=== PATIENT | male | born 1995 ===

== ENCOUNTER 2017-08-04 19:34 | Emergency (ER) | payer BC ==
[2017-08-04] MEDS ORDERED: Amoxicillin PO (*) 500 MG CAP PO ONE (21:10)
[2017-08-04] MEDS ORDERED: Dexamethasone TAB* 4 MG PO ONE (21:14)
--- NOTE | 2017-08-04 21:14 | ED ---
Throat Pain/Nasal Congestion - HPI Summary HPI Summary: 22-year-old male presents with sore throat for the past week. He admits to occasional cough. He is able to swallow but states it is painful. He is able tolerate food and drink. He denies any fatigue. He admits to subjective fevers. He denies any muscle aches. He denies any bowel pain. He denies any nausea vomiting. He also has been treated for conjunctivitis for the past 4 days on Polytrim. He states he woke up with crusting of his eye 5 days ago. He states been gradually getting better but thought it be more improvement this. He does wear contacts but has not worn contacts in about a month. He has a history of pinkeye. He denies any foreign body. He states the eye is irritated - History of Current Complaint Chief Complaint: EDThroatPain Time Seen by Provider: 08/04/17 20:15 - Allergies/Home Medications Allergies/Adverse Reactions: Allergies Allergy/AdvReac Type Severity Reaction Status Date / Time aspirin Allergy Rash Verified 08/04/17 19:48 PMH/Surg Hx/FS Hx/Imm Hx Endocrine/Hematology History: Denies: Hx Anticoagulant Therapy Cardiovascular History: Denies: Hx Hypertension Infectious Disease History: No Infectious Disease History: Denies: Traveled Outside the [place] in Last 30 Days - Family History Known Family History: Positive: Unknown - Patient is unconscious - Social History Alcohol Use: Occasionally Substance Use Type: Reports: None Substance Use Comment - Amount & Last Used: unknown Smoking Status (MU): Never Smoked Tobacco Review of Systems Negative: Fever Positive: Erythema Positive: Sore Throat Negative: Chest Pain Negative: Shortness Of Breath All Other Systems Reviewed And Are Negative: Yes Physical Exam Triage Information Reviewed: Yes Vital Signs On Initial Exam: Initial Vitals Temp Pulse Resp BP Pulse Ox 99.1 F 94 16 128/79 99 08/04/17 19:46 08/04/17 19:46 08/04/17 19:46 08/04/17 19:46 08/04/17 19:46 Vital Signs Reviewed: Yes Appearance: Positive: Well-Appearing Skin: Positive: Warm, Dry Head/Face: Positive: Normal Head/Face Inspection Eyes: Positive: EOMI, ABBEY, Conjunctiva Inflammed - Left ENT: Positive: Pharyngeal erythema, TMs normal, Tonsillar swelling - +2, Uvula midline, Other - Soft palate symmetric. Negative: Tonsillar exudate, Trismus, Muffled voice Neck: Positive: Supple, Nontender, No Lymphadenopathy Respiratory/Lung Sounds: Positive: Clear to Auscultation, Breath Sounds Present Cardiovascular: Positive: Normal, RRR Abdomen Description: Positive: Nontender, Soft Bowel Sounds: Positive: Present Musculoskeletal: Positive: Normal Neurological: Positive: Normal Psychiatric: Positive: Normal Diagnostics - Vital Signs Vital Signs Temp Pulse Resp BP Pulse Ox 08/04/17 19:46 99.1 F 94 16 128/79 99 - Laboratory Lab Results: Lab Results 08/04/17 Range/Units 20:28 Group A Strep Rapid Positive A (Negative) Lab Statement: Any lab studies that have been ordered have been reviewed, and results considered in the medical decision making process. EENT Course/Dx - Course Course Of Treatment: 22-year-old male presents with sore throat for the past week. He admits to occasional cough. He is able to swallow but states it is painful. He is able tolerate food and drink. He denies any fatigue. He admits to subjective fevers. He denies any muscle aches. He denies any bowel pain. He denies any nausea vomiting. He also has been treated for conjunctivitis for the past 4 days on Polytrim. He states he woke up with crusting of his eye 5 days ago. He states been gradually getting better but thought it be more improvement this. He does wear contacts but has not worn contacts in about a month. He has a history of pinkeye. On exam left eye injected. Tonsils +2 without exudate. Uvula midline. Soft palate symmetric. Lungs clear to auscultation. Strep positive. [place] negative. We'll treat with amoxicillin for strep. We will switch from Polytrim to Cipro for the conjunctivitis and have follow-up with ophthalmology has not completely resolved after 4 days of antibiotic. Patient understands agrees with plan. - Differential Diagnoses Differential Diagnoses: Pharyngitis, Tonsilitis, URI/Bronchitis - Diagnoses Provider Diagnoses: Streptococcal sore throat, Conjunctivitis Discharge - Sign-Out/Discharge Documenting (check all that apply): Discharge - Discharge Plan Condition: Good Disposition: HOME Prescriptions: Amoxicillin PO (*) [Amoxicillin 500 MG CAP*] 500 mg PO Q12H #19 cap Dexamethasone TAB* [Decadron TAB*] 4 mg PO DAILY #4 tab Patient Education Materials: Strep Throat (ED) Referrals: [facility] - Flako VILLAGRAN [Primary Care Provider] - Fran Chapman MD [Medical Doctor] - Additional Instructions: Take antibiotic twice a day for 10 days Take steroid once a day for 5 days Take Tylenol or ibuprofen for pain/fever every 6 hours Can gargle salt water, use cough drops or products such as cloraseptic spray for pain Stop eye drops and start cipro four times a day for 5 days Follow up with optho Return to ED if develop difficulty breathing or unable to manage secretions, any new or worsening symptoms - Billing Disposition and Condition Condition: GOOD Disposition: HOME
[2017-08-04] MEDS ORDERED: Ciprofloxacin 0.3% OPTH.SOL* 2.5 ML BTL LEFT EYE ONE (21:37)
[2017-08-04 22:08] VITALS: BP 123/76
== END 2017-08-04 22:07 | disposition home or self-care (01) ==
LOC: ED 19:34
DX: J02.0 Streptococcal pharyngitis (principal); H10.9 Unspecified conjunctivitis; J02.9 Acute pharyngitis, unspecified
CPT/HCPCS: 36415; 86308; 87651; 99282; A9270-GY; J8540